=== PATIENT | male | born 1950 | race Caucasian/White ===

== ENCOUNTER 2019-07-02 06:36 | Inpatient (IN) ==
[2019-06-26 13:08] LABS: Appearance,Urine HAZY; Bilirubin,Urine NEG (NEG); Color,Urine AMBER; Culture Indicated,Urine NO; Glucose,Urine (UA) NEGATIVE (NEG); Ketones,Urine NEG (NEG); Leukocyte Esterase,Urine NEG /uL (NEG); Nitrate,Urine NEG (NEG); Protein,Urine NEG (NEG); Specific Gravity,Urine 1.027 (1.000-1.035); Urine Blood NEG mg/dL (<0.03); Urobilinogen,Urine NEG (NEG)
[2019-06-26 13:52] LABS: Basophils # (Auto) 0.03 K/mcL (0.00-0.30); Basophils % (Auto) 0.5 % (0.0-2.0); Eosinophils # (Auto) 0.16 K/mcL (0.00-0.70); Eosinophils % (Auto) 2.6 % (0.0-7.0); Granulocytes % (Auto) 59.4 % (38.0-78.0); Hematocrit 43.1 % (40.1-51.0); Hemoglobin 13.9 g/dL (13.7-17.5); Lymphocytes # (Auto) 1.57 K/mcL (1.50-4.80); Lymphocytes % (Auto) 25.7 % (15.5-49.0); Mean Cell Volume 87.2 fL (80.0-100.0); Mean Corpuscular HGB Conc 32.3 g/dL (31.0-36.0); Mean Platelet Volume 9.8 fL (7.4-10.4); Monocytes # (Auto) 0.72 K/mcL (0.10-0.90); Monocytes % (Auto) 11.8 % (1.0-12.0); Platelet Count 283 K/mcL (140-440); RBC 4.94 M/mcL (4.63-6.08); Red Cell Distribution Width 12.9 % (11.5-14.5); WBC 6.1 K/mcL (4.50-11.00)
[2019-06-26 14:01] LABS: Blood Urea Nitrogen 19 mg/dl (8-23); Calcium 9.7 mg/dl (8.6-10.4); Carbon Dioxide 26 mmol/L (22-30); Chloride 104 mmol/L (96-108); Glomerular Filtration Rate 93; Glucose 85 mg/dL (70-105)
[2019-06-26 14:13] LABS: Prothrombin Time 13.2 sec (11.9-14.5)
[~2019-07-02 06:36] MED LIST: 0.9 % SODIUM CHLORIDE 9 ML, KETOROLAC 30 MG, ROPIVACAINE HCL/PF 49.5 ML, EPINEPHrine 0.... IJ SCH; ACETAMINOPHEN 500 MG TABLET PO SCH; CELECOXIB 200 MG CAPSULE PO SCH; GABAPENTIN 100 MG CAPSULE PO SCH; ceFAZolin 3 GM in DEXTROSE 5% IN WATER 50 ML IV SCH; oxyCODONE 10 MG TAB.ER.12H PO SCH
[2019-07-02] MEDS ORDERED: SCOPOLAMINE 1 PATCH PATCH TOPICAL PRN (07:00)
[2019-07-02] MEDS ORDERED: IPRATROPIUM/ALBUTEROL 3 ML AMPUL.NEB NEB PRN ×2 (07:00→09:42)
[2019-07-02] MEDS ORDERED: KETAMINE 100 MG/ML ML IV ONE (08:41)
[2019-07-02] MEDS ORDERED: PROPOFOL 200 MG/20 ML VIAL IV ONE (08:41)
[2019-07-02] MEDS ORDERED: LIDOCAINE HCL/PF 100 MG/5 ML SYRINGE IV ONE (08:41)
[2019-07-02] MEDS ORDERED: TRANEXAMIC ACID 1,000 MG/10 ML VIAL IV ONE ×2 (08:41→10:17)
[2019-07-02] MEDS ORDERED: PHENYLEPHRINE 10 MG/ML VIAL IV ONE (08:41)
[2019-07-02] MEDS ORDERED: DEXAMETHASONE 10 MG/ML VIAL IV ONE (08:41)
[2019-07-02] MEDS ORDERED: ONDANSETRON 4 MG/2 ML VIAL IV ONE (08:41)
[2019-07-02] MEDS ORDERED: GLYCOPYRROLATE 0.2 MG/ML VIAL IV ONE (08:41)
[2019-07-02] MEDS ORDERED: ROCURONIUM 10 MG/ML ML IV ONE (08:41)
[2019-07-02] MEDS ORDERED: ePHEDrine 50 MG/ML AMPUL IV ONE (08:41)
[2019-07-02] MEDS ORDERED: MIDAZOLAM 2 MG/2 ML VIAL IV ONE (08:41)
[2019-07-02] MEDS ORDERED: fentaNYL 250 MCG/5 ML VIAL IV ONE (08:41)
[2019-07-02] MEDS ORDERED: diphenhydrAMINE 50 MG/ML VIAL IV PRN (09:42)
[2019-07-02] MEDS ORDERED: PROMETHAZINE 25 MG/ML VIAL IV PRN (09:42)
[2019-07-02] MEDS ORDERED: HYDROmorphone 2 MG/ML VIAL IV PRN ×2 (09:42→10:17)
[2019-07-02] MEDS ORDERED: ATROPINE SULFATE 0.4 MG/ML VIAL IV PRN (09:42)
[2019-07-02] MEDS ORDERED: MEPERIDINE 25 MG/ML SYRINGE IV PRN (09:42)
[2019-07-02] MEDS ORDERED: FLUMAZENIL 0.1 MG/ML ML IV PRN (09:42)
[2019-07-02] MEDS ORDERED: METOPROLOL TARTRATE 5 MG/5 ML VIAL IV PRN (09:42)
[2019-07-02] MEDS ORDERED: ONDANSETRON 4 MG/2 ML VIAL IV PRN ×2 (09:42→10:17)
[2019-07-02] MEDS ORDERED: GENTAMICIN SULFATE 800 MG/20 ML VIAL IR ONE (09:42)
[2019-07-02] MEDS ORDERED: ePHEDrine 50 MG/ML AMPUL IV PRN (09:42)
[2019-07-02] MEDS ORDERED: NALOXONE HCL 0.4 MG/ML VIAL IV PRN (09:42)
[2019-07-02] MEDS ORDERED: METHOCARBAMOL 1,000 MG/10 ML VIAL IV PRN (09:42)
[2019-07-02] MEDS ORDERED: LACTATED RINGERS 1,000 ML IV SCH (09:45)
--- NOTE | 2019-07-02 10:03 | XRay Report ---
CLINICAL INFORMATION: left total hip COMPARISON: None. FINDINGS: Single image from the OR shows femoral neck template and prosthetic acetabulum to be well aligned. No osseous abnormality. IMPRESSION: Intraoperative film as described Interpreted and Authenticated by: Gonzalez Carson 07/02/19
[2019-07-02] MEDS ORDERED: TEMAZEPAM 15 MG CAPSULE PO PRN (10:17)
[2019-07-02] MEDS ORDERED: BISACODYL 10 MG SUPP.RECT PR PRN (10:17)
[2019-07-02] MEDS ORDERED: FLEETS ADULT ENEMA PR PRN (10:17)
[2019-07-02] MEDS ORDERED: POLYETHYLENE GLYCOL 3350 17 GM PACKET PO PRN (10:17)
[2019-07-02] MEDS ORDERED: BENZOCAINE/MENTHOL 1 LOZENGE PO PRN (10:17)
[2019-07-02] MEDS ORDERED: MAGNESIUM HYDROXIDE 30 ML ORAL.SUSP PO PRN (10:17)
[2019-07-02] MEDS ORDERED: ACETAMINOPHEN 325 MG TABLET PO PRN (10:17)
--- NOTE | 2019-07-02 10:17 | Brief Operative Note ---
Date of procedure: 07/02/19 Pre-op diagnosis: left hip avn severe Post-op diagnosis: same Procedure: left total hip Grafts/Implants: Yes Anesthesia: GETA Complications Description: 07/02/19 10:17 none Surgeon: Daryl Sheikh Assistant Softball Coach: Harvinder Ramos Estimated blood loss (cc): 150 Tourniquet Time (Minutes): 0 Specimens Removed/Pathology: none sent Condition: stable Disposition: PACU
[2019-07-02] MEDS ORDERED: ACETAMINOPHEN 500 MG TABLET PO PRN (10:20)
[2019-07-02] MEDS ORDERED: SILDENAFIL CITRATE 50 MG PO PRN (10:20)
[2019-07-02] MEDS ORDERED: FLUTICASONE PROPIONATE SPRAY.NAS NS PRN (10:20)
[2019-07-02] MEDS ORDERED: CETIRIZINE 10 MG TABLET PO PRN (10:20)
[2019-07-02] MEDS ORDERED: ZOLPIDEM 5 MG TABLET PO PRN (10:20)
[2019-07-02] MEDS ORDERED: POLYVINYL ALCOHOL OPHTH DROPS 15ML BOTTLE OU PRN (10:20)
[2019-07-02] MEDS ORDERED: CARBOXYMETHYLCELLULOSE SODIUM 1 EACH DROPER.GEL OU PRN (10:20)
[2019-07-02] MEDS ORDERED: OXYGEN AIR DELIVERY SYSTEMS MISCELLANE SCH (10:30)
--- NOTE | 2019-07-02 10:46 | Operative Note ---
DATE OF OPERATION: 07/02/2019 PREOPERATIVE DIAGNOSIS: Left hip avascular necrosis. POSTOPERATIVE DIAGNOSIS: Left hip avascular necrosis. PROCEDURE: Left total hip arthroplasty from a superior approach. SURGEON: Daryl Sheikh MD PRECAST WORKER: Harvinder Ramos PA-C. This provider's expertise and technical skill were required throughout the case. The LORE[facility] assisted with preoperative coordination, intraoperative retraction, wound closure, dressing and splint application, as well as postoperative documentation and care coordination. ANESTHESIA: General LMA anesthesia. COMPLICATIONS: None. ESTIMATED BLOOD LOSS: 150 mL. IV ANTIBIOTICS: Preop antibiotics and tranexamic acid had been given prior to the starting of the case. IMPLANTS: Size 7 Accolade stem as well as a 56 cementless cup with a hooded liner, a neutral neck length and ceramic ball. DESCRIPTION OF PROCEDURE: The patient was brought to the operating room and put to sleep with general LMA anesthesia. Once asleep, the patient had the left hip sterilely prepped and draped in the usual sterile fashion. He was turned into right lateral position, Sd positioner used. Timeout was performed. We confirmed the operative site by initials, consent form and x-rays as well as preoperative antibiotics and tranexamic had been given. Ioban had been placed over the skin. We made a superior approach to the hip and exposed the joint. A Charnley retractor was placed and we subluxed the hip posteriorly. We made a neck cut from the center of hip rotation at 34 mm. Once this was made, we then subluxed the hip anteriorly, reamed up the acetabulum to the size 56, removed the labrum and any soft tissue surrounding this, implanted a 56 cup at 20 degrees of anteversion and 40 degrees of inclination using the alignment guide. Once in place, we placed a 30 mm screw. We irrigated thoroughly and then placed the hooded liner with the wells was placed slightly more inferiorly. We irrigated thoroughly and then prepared the femur. This was broached up to the size 6. An x-ray was taken. This confirmed equal leg lengths, but the stem did not feel the canal. We went to a size 7 after we reamed distally and lateralized slightly more and then this fit very nicely with a neutral neck length. Once done, we irrigated thoroughly. We then placed a cementless size 7 stem from [employer] with a small amount of cement distally, a ceramic ball with a neutral neck length. This was reduced. This reduced very nicely and was very stable throughout the arc of motion without any subluxation up to 90 degrees of internal rotation and 90 degrees of flexion. Extension was equal, leg lengths symmetric on the table. We irrigated thoroughly, closed the fascial layer with a #1 Stratafix, closed the skin with Stratafix and adhesive closure. The patient tolerated this well without complication. [id number] Job ID: [id number] Doc ID: [id number] Daryl Sheikh MD
[2019-07-02] MEDS: KETOROLAC 15 MG/ML VIAL IV PRN ×2 (11:10→20:51)
[2019-07-02] MEDS: fentaNYL 100 MCG/2 ML VIAL IV PRN ×4 (11:12→11:21)
--- NOTE | 2019-07-02 11:24 | XRay Report ---
CLINICAL INFORMATION: Post-Op Total Hip COMPARISON: None. FINDINGS: Left total hip prosthesis is in near-anatomic alignment. No osseous abnormality. Both SI and right hip joints are normal. Moderate L4-5 L5-S1 degenerative disc disease noted. IMPRESSION: Left total hip prostheses in near-anatomic alignment. Interpreted and Authenticated by: Gonzalez Carson 07/02/19
[2019-07-02] MEDS: LACTATED RINGERS 1,000 ML IV SCH ×2 (12:01→20:50)
[2019-07-02] MEDS: 0.9 % SODIUM CHLORIDE 10 ML SYRINGE IV SCH (15:27)
[2019-07-02] MEDS: oxyCODONE/APAP 5/325MG TABLET PO PRN ×2 (16:23→22:08)
[2019-07-02] MEDS: ceFAZolin 1 GM VIAL IV SCH (16:31)
[2019-07-02] MEDS: GABAPENTIN 100 MG CAPSULE PO SCH (20:52)
[2019-07-02] MEDS: DOCUSATE SODIUM 100 MG CAPSULE PO SCH (20:53)
[2019-07-02] MEDS: ASPIRIN 325 MG ENTERIC COATED TABLET PO SCH (20:53)
[2019-07-02] MEDS ORDERED: SENNOSIDES 1 TABLET PO SCH (21:00)
[2019-07-02] MEDS ORDERED: LOSARTAN 50 MG TABLET PO SCH (21:00)
[2019-07-02] MEDS ORDERED: SIMVASTATIN 20 MG TABLET PO SCH (21:00)
[2019-07-03] MEDS: 0.9 % SODIUM CHLORIDE 10 ML SYRINGE IV SCH ×2 (00:02→04:18)
[2019-07-03] MEDS: ceFAZolin 1 GM VIAL IV SCH (00:25)
[2019-07-03] MEDS: oxyCODONE/APAP 5/325MG TABLET PO PRN ×2 (04:17→09:38)
[2019-07-03] MEDS ORDERED: OMEPRAZOLE 20 MG CAPSULE PO SCH (07:30)
--- NOTE | 2019-07-03 08:37 | Orthopedic Progress Note ---
Subjective Patient information: Note initiated : 07/03/19 at 8:36 am Service Date, if different from initiated Date: [] Patient: Vinicius Mcdonald 68 y/o M admitted on 07/02/19 for Left Total Hip Arthroplasty. Chief Complaint: [Pt is stable this morning on post operative day 1 without any significant concerns or complaints. Patients vital signs have remained stable. Patients dressing is dry and is grossly intact from a neurovascular and motor standpoint. Patients 10 point ROS is otherwise negative. ] Objective Vital signs: Vital Signs Temp Pulse Resp BP Pulse Ox 07/03/19 08:00 98.8 F 68 14 103/60 98 07/03/19 04:21 97.9 F 90 16 140/70 97 07/03/19 04:11 97 07/03/19 01:00 94 07/02/19 23:56 87 07/02/19 23:00 96 07/02/19 22:54 98.6 F 87 16 127/72 97 07/02/19 20:00 16 95 07/02/19 19:01 98.2 F 112 H 16 120/70 95 07/02/19 19:00 97 07/02/19 16:00 98.0 F 91 H 18 130/73 97 07/02/19 13:20 87 18 124/70 96 07/02/19 12:50 69 18 115/65 95 07/02/19 12:35 68 18 117/66 96 07/02/19 12:20 63 18 118/68 96 07/02/19 12:05 70 18 111/64 96 07/02/19 11:50 97.5 F 67 16 116/64 95 07/02/19 11:35 97.6 F 74 12 109/59 93 07/02/19 11:10 82 12 126/59 99 07/02/19 10:55 78 18 142/69 100 07/02/19 10:42 97.4 F 91 H 10 L 174/63 100 Intake and Output 07/02/19 07/03/19 07/03/19 21:59 05:59 13:59 Intake Total 2452 100 Output Total 1200 650 Balance 1252 -550 Intake: IV 882 Lactated Ringers 1,000 ml @ 100 882 mls/hr IV .Q10H DARRYN Rx#: [id number] Oral 1570 100 Output: Void Amount 1200 650 Other: Meal Dinner Percent of Meal Consumed 100% Feeding Ability Independent Urine Appearance Clear Clear darling Clear Urine Color Bright Yellow Bright Yellow darling Bright Yellow Urine Odor Normal Normal # Voids 1 Weight 276 lb 6.4 oz Intake & Output: Intake & Output 07/02/19 07/03/19 07/03/19 21:59 05:59 13:59 Intake Total 2452 100 Output Total 1200 650 Balance 1252 -550 Weight 276 lb 6.4 oz Intake: IV 882 Lactated Ringers 1,000 ml @ 100 882 mls/hr IV .Q10H DARRYN Rx#: [id number] Oral 1570 100 Output: Void Amount 1200 650 Other: Meal Dinner Percent of Meal Consumed 100% Feeding Ability Independent Urine Appearance Clear Clear darling Clear Urine Color Bright Yellow Bright Yellow darling Bright Yellow Urine Odor Normal Normal # Voids 1 Incision: Yes healing Incision clean and dry: Yes Dressing: Yes clean Weight bearing status: full Neurological exam IM: Yes motor sensory intact, Yes neurovascular intact Extremities exam IM: Yes Foot pink and warm, Yes neurovascular intact - Labs CBC & BMP: 07/03/19 05:15 06/26/19 11:53 Labs: Orthopedic Labs 06/26/19 11:53 PT 13.2 INR 1.0 APTT 33 07/03/19 06/26/19 05:15 11:53 Hgb 13.9 Hct 35.2 L 43.1 Assessment and Plan (1) Hx of total hip arthroplasty The patient has been educated regarding dressing care, Physical Therapy recommendations, home exercises, restrictions, and follow up appointments. The patient has had all necessary DME prescribed. The patient has remained relatively stable during their hospital course. Status: Acute
--- NOTE | 2019-07-03 08:39 | Discharge Summary ---
Ortho Discharge - LES - Patient Instructions Diet: Regular Diet Activity: activity as tolerated, weight bearing as tolerated Total Hip Protocol: Follow activity instructions as provided by Physical Therapy. Dressing Care: May shower in 2 days - Problem Maintenance (1) Hx of total hip arthroplasty Status: Acute - Follow Up Plan Follow Up Appointments: Harvinder Ramos PA-C [Physician Curriculum Advisory Teacher] - 07/17/19 10:00 am Disposition: Home, Self-Care Prognosis: Good Rehab Potential: Good I certify that the patient requires SNF services: No Overall status at discharge: patient is progressing back to baseline - Orders For Discharge Prescriptions: Docusate Sodium [Colace] 100 mg PO BID #60 cap Transmission Status: Pending to [facility] Aspirin [Ecotrin] 325 mg PO BID #60 Prescription Printed oxyCODONE/APAP [Percocet 5-325 mg] 1 - 2 tab PO Q4HP PRN #75 tab PRN Reason: Per Pain Protocol Prescription Printed
[2019-07-03] MEDS ORDERED: FOLIC ACID 1 MG TABLET PO SCH (09:00)
[2019-07-03] MEDS: GABAPENTIN 100 MG CAPSULE PO SCH (09:58)
[2019-07-03] MEDS: ASPIRIN 325 MG ENTERIC COATED TABLET PO SCH (09:58)
[2019-07-03] MEDS: DOCUSATE SODIUM 100 MG CAPSULE PO SCH (09:58)
[2019-07-03] MEDS: LACTATED RINGERS 1,000 ML IV SCH (09:59)
== END 2019-07-03 10:30 | disposition home or self-care (01) | DRG 470 ==
LOC: MEDSUR 06:36
PROVIDERS: ADMIT Orthopaedic Surgery; ATTEND Orthopaedic Surgery